=== PATIENT | female | born 1985 | race African-American/Black ===

== ENCOUNTER 2022-02-25 04:48 | Emergency (ER) | payer BC ==
[~2022-02-25] VITALS: Ht 167.6 cm; Wt 97.7 kg
[2022-02-25 06:05] LABS: Albumin 3.4 g/dL (3.4-5.0); Calcium 8.8 mg/dL (8.5-10.1)
[2022-02-25 06:09] LABS: BUN/Creatinine Ratio 18.8; Bilirubin, Total 0.5 mg/dL (0.2-1.0); Total Protein 6.8 g/dL (6.4-8.2)
[2022-02-25 06:31] LABS: Basophils # (auto) 0.1 10 ^3/uL (0-0.2); Basophils % (auto) 0.7 % (0.0-2.0); Eosinophils # (auto) 0.3 10 ^3/uL (0-0.8); Eosinophils % (auto) 3.6 % (0.0-7.0); Hemoglobin 14.2 g/dL (12.2-16.2); Lymphocytes # (auto) 3.2 10 ^3/uL (0.4-5.4); Lymphocytes % (auto) 34.5 % (10.0-50.0); Mean Corpuscular Hgb Conc. 33.1 g/dL (32.0-36.0); Mean Corpuscular Volume 93.5 fL (80.0-100.0); Monocytes # (auto) 0.6 10 ^3/uL (0-1.3); Monocytes % (auto) 6.1 % (0.0-12.0); Neutrophils % (auto) 55.1 % (37.0-80.0); Nucleated Red Blood Cells % 0.1 %; Red Blood Cells 4.59 10^6/uL (4.0-5.20); Red Cell Distribution Width 13.1 % (11.8-14.3); White Blood Cell 9.2 10^3/uL (4.4-10.8)
[2022-02-25 08:00] LABS: Urine Bacteria NONE SEEN /hpf (None Seen); Urine Blood Negative /uL (Negative); Urine Mucus FEW (None Seen); Urine Specific Gravity 1.024 (1.001-1.035); Urine WBC 2 /hpf (0 - 5)
[2022-02-25] MEDS ORDERED: TRAM-297 PO (08:26)
[2022-02-25] MEDS ORDERED: ONDA-144 PO (08:26)
[2022-02-25 08:36] VITALS: BP 140/91
== END 2022-02-25 08:57 | disposition home or self-care (01) ==
LOC: ER 04:48
DX: R10.30 Lower abdominal pain, unspecified (principal); J45.909 Unspecified asthma, uncomplicated; Z98.890 Other specified postprocedural states; Z20.822 Contact with and (suspected) exposure to COVID-19
CPT/HCPCS: 36415; 74176; 80053; 81001; 81025; 82150; 83690; 84484; 85025; 85379; 87426; 87804; 93005

== ENCOUNTER → 2024-07-09 | Outpatient (CLI) | payer BC ==
[~2024-07-09] MED LIST: ONDA-144 PO; TRAM-297 PO
[2024-07-09 15:43] LABS: Basophils # (auto) 0.1 10 ^3/uL (0-0.2); Basophils % (auto) 0.6 % (0.0-2.0); Eosinophils # (auto) 0.3 10 ^3/uL (0-0.8); Eosinophils % (auto) 3.3 % (0.0-7.0); Hematocrit 39.7 % (36.0-46.0); Hemoglobin 13.7 g/dL (12.2-16.2); Lymphocytes # (auto) 2.3 10 ^3/uL (0.4-5.4); Lymphocytes % (auto) 21.8 % (10.0-50.0); Mean Corpuscular Hemoglobin 31.7 pg (28.0-32.0); Mean Corpuscular Hgb Conc. 34.6 g/dL (32.0-36.0); Mean Corpuscular Volume 91.9 fL (80.0-100.0); Monocytes # (auto) 0.5 10 ^3/uL (0-1.3); Monocytes % (auto) 4.7 % (0.0-12.0); Neutrophils # (auto) 7.2 10 ^3/uL (1.6-8.6); Neutrophils % (auto) 69.6 % (37.0-80.0); Nucleated Red Blood Cells % 0.1 %; Platelet Count (auto) 242 10^3/uL (140-450); Red Blood Cells 4.32 10^6/uL (4.0-5.20); Red Cell Distribution Width 14.8 % (11.8-14.3); White Blood Cell 10.4 10^3/uL (4.4-10.8)
[2024-07-10 20:07] LABS: Chlamydia Trachomatis, NAA Negative (Negative); Neisseria gonorrhoeae, NAA Negative (Negative)
== END | disposition home or self-care (01) ==
LOC: LAB 15:16
PROVIDERS: ATTEND Obstetrics & Gynecology
DX: Z34.80 Encounter for supervision of other normal pregnancy, unspecified trimester (principal); Z72.51 High risk heterosexual behavior; Z3A.00 Weeks of gestation of pregnancy not specified
CPT/HCPCS: 36415; 83036; 84144; 84702; 85025; 86703; 86762; 86780; 86850; 86900; 86901; 87086; 87340

== ENCOUNTER 2024-11-01 10:58 | Observation (INO) | payer BC ==
[2024-11-01] MEDS ORDERED: ASPI1TAB20 PO (12:18)
[2024-11-01] MEDS ORDERED: PREN-96 PO (12:18)
[2024-11-01] MEDS ORDERED: LABE200T33 PO (12:18)
--- NOTE | 2024-11-03 09:20 | DVHDS2 ---
Physician Discharge Progress N Final Diagnosis: GEST HTN,PTL 27WKS Operations or Procedures: Operations or Procedures NST REACTIVE REVIWED,SONO Condition on Discharge: Good Disposition: Home Discharge Instructions: Diet: Regular Activity: Light activity Activity comment: pelvic rest Medications: NA Follow Up Care: Specialist: 3D Discharge Statement: "Patient was advised to return to the ER or call 911 if any headaches, dizziness, shortness of breath, chest pain, abdominal pain, bleeding, fevers, or worsening of medical condition. Patient was counseled about treatment plan, medications, possible side effects, patientverbalized understanding. All questions were answered to the best of my ability. This discharge took greater then 30 minutes in planning, reviewing documentation, counseling the patient, and discussing with other team members." Visit Coding OBGYN Date of Service: Nov 02, 2024 Billing Provider: DARCIE RAMIREZ DO MOLD CLOSER HELPER Common Visit Codes: [id number] OBS CARE (HIGH) MOLD CLOSER HELPER Procedure Codes: 51695-85- NON-STRESS TEST DARCIE RAMIREZ DO Nov 03, 2024 09:20
== END 2024-11-01 12:31 | disposition home or self-care (01) ==
LOC: LDRP 10:58 → UNDOADMOB 10:58 → LDRP 11:07 → UNDODISOB 12:31
PROVIDERS: ADMIT Obstetrics & Gynecology; ATTEND Obstetrics & Gynecology
DX: O60.02 Preterm labor without delivery, second trimester (principal); O13.2 Gestational [pregnancy-induced] hypertension without significant proteinuria, second trimester; Z3A.27 27 weeks gestation of pregnancy; Z98.890 Other specified postprocedural states
CPT/HCPCS: 59025; 81002; 94760; G0378

== ENCOUNTER 2024-11-08 12:10 | Observation (INO) | payer BC ==
[~2024-11-08] VITALS: Ht 167.6 cm; Wt 110.2 kg
[~2024-11-08 12:10] MED LIST changes: +ASPI1TAB20 PO; +LABE200T33 PO; +PREN-96 PO
--- NOTE | 2024-11-08 13:53 | DVH ---
OB ULTRASOUND >14 WEEKS: HISTORY: PTL TECHNIQUE: Multiple real-time grayscale sonographic images of the pelvis with duplex Doppler color f low, spectral and M-mode analysis. TRANSDUCERS: Transabdominal COMPARISON: None Findings/ IMPRESSION: Breech presentation. Posterior placenta PELON deepest pocket measures 7.4 cm. Cervix is closed and measures 3.8 cm. heart rate 137 beats per minute
[2024-11-08 14:58] LABS: Hematocrit 38.1 % (36.0-46.0); Hemoglobin 13.0 g/dL (12.2-16.2); Mean Corpuscular Hemoglobin 32.3 pg (28.0-32.0); Mean Corpuscular Volume 94.6 fL (80.0-100.0); Nucleated Red Blood Cells % 0.0 %
[2024-11-08 15:12] LABS: Alanine Aminotransferase 23 U/L (7-40); Albumin 3.7 g/dL (3.2-4.8); Alkaline Phosphatase 57 U/L (46-116); Anion Gap 9 (5-15); BUN/Creatinine Ratio 12.5 (10.0-20.0); Bilirubin, Total 0.4 mg/dL (0.2-1.0); Blood Urea Nitrogen 7 mg/dL (9-23); Calcium 9.0 mg/dL (8.7-10.4); Carbon Dioxide 23 mmol/L (20-31); Chloride 106 mmol/L (98-107); Glucose 79 mg/dL (74-106); INR 0.94 (0.9-1.15); Partial Thromboplastin Time 28.5 SEC (24.5-34.5); Potassium 3.8 mmol/L (3.5-5.1); Prothrombin Time 10.0 sec (9.3-11.8); Sodium 138 mmol/L (136-145); Total Protein 6.4 g/dL (5.7-8.2); Uric Acid 3.9 mg/dL (3.1-7.8)
[2024-11-08] MEDS: LABETALOL HCL 200 MG TAB PO ONE (15:12)
[2024-11-08 15:47] LABS: Protein, Urine 24.4 mg/dL (1-14)
[2024-11-08 16:02] LABS: Urine Protein, UAD TRACE (Negative)
--- NOTE | 2024-11-08 16:19 | DVHDS2 ---
Physician Discharge Progress N Final Diagnosis: IUP 28 wk, CHTN Commentary: Commentary NST appropriate for gest age PIH labs NORMAL BP's controlled on meds Condition on Discharge: Stable Disposition: Home Discharge Instructions: Diet: Regular Activity: No Restrictions, As Tolerated Follow Up/Referral: As scheduled w/ Dr Kinney Medications: CONTINUE ALL HOME MEDICATIONS DIRECTED BY DR. KINNEY Follow Up Care: Discharge Statement: "Patient was advised to return to the ER or call 911 if any headaches, dizziness, shortness of breath, chest pain, abdominal pain, bleeding, fevers, or worsening of medical condition. Patient was counseled about treatment plan, medications, possible side effects, patientverbalized understanding. All questions were answered to the best of my ability. This discharge took greater then 30 minutes in planning, reviewing documentation, counseling the patient, and discussing with other team members." Visit Coding OBGYN Date of Service: Nov 08, 2024 Billing Provider: CECIL LUCAS DO MATERIAL HANDLING SUPERVISOR Common Visit Codes: 86592-EZW/OBS SAME DATE (HIGH) MATERIAL HANDLING SUPERVISOR Procedure Codes: 47660-18- NON-STRESS TEST CECIL LUCAS DO Nov 08, 2024 16:19
== END 2024-11-08 16:30 | disposition home or self-care (01) ==
LOC: LDRP 12:10
PROVIDERS: ADMIT Obstetrics & Gynecology; ATTEND Obstetrics & Gynecology
DX: O13.3 Gestational [pregnancy-induced] hypertension without significant proteinuria, third trimester (principal); Z3A.28 28 weeks gestation of pregnancy; Z98.890 Other specified postprocedural states
CPT/HCPCS: 36415; 59025; 76815; 80053; 81001; 81002; 82570; 84156; 84550; 85025; 85610; 85730; 94760; G0378

== ENCOUNTER 2024-11-15 11:58 | Observation (INO) | payer BC ==
[~2024-11-15 11:58] MED LIST changes: -ONDA-144 PO; -TRAM-297 PO
--- NOTE | 2024-11-15 13:35 | DVHDS2 ---
Physician Discharge Progress N Final Diagnosis: gest htn,ptl 29wks Operations or Procedures: Operations or Procedures nst reactive reviwed,sono Condition on Discharge: Good Disposition: Home Discharge Instructions: Diet: Regular Activity: No Restrictions, As Tolerated Medications: na Follow Up Care: Specialist: 1w Discharge Statement: "Patient was advised to return to the ER or call 911 if any headaches, dizziness, shortness of breath, chest pain, abdominal pain, bleeding, fevers, or worsening of medical condition. Patient was counseled about treatment plan, medications, possible side effects, patientverbalized understanding. All questions were answered to the best of my ability. This discharge took greater then 30 minutes in planning, reviewing d ocumentation, counseling the patient, and discussing with other team members." Visit Coding OBGYN Date of Service: Nov 15, 2024 Billing Provider: DARCIE RAMIREZ DO AEGIS CONSOLE OPERATOR TRACK Common Visit Codes: 13570-[id number] OBS CARE (HIGH) AEGIS CONSOLE OPERATOR TRACK Procedure Codes: 18644-09- NON-STRESS TEST DARCIE RAMIREZ DO Nov 15, 2024 13:34
== END 2024-11-15 14:01 | disposition home or self-care (01) ==
LOC: UNDOADMOB 11:58 → LDRP 11:58
PROVIDERS: ADMIT Obstetrics & Gynecology; ATTEND Obstetrics & Gynecology
DX: O13.3 Gestational [pregnancy-induced] hypertension without significant proteinuria, third trimester (principal); O60.03 Preterm labor without delivery, third trimester; Z3A.29 29 weeks gestation of pregnancy; Z98.890 Other specified postprocedural states
CPT/HCPCS: 59025; 81002; 94760; G0378

== ENCOUNTER 2024-11-19 05:54 | Observation (INO) | payer BC ==
[~2024-11-19] VITALS: Ht 167.6 cm; Wt 111.6 kg
--- NOTE | 2024-11-20 13:53 | DVHDS2 ---
Physician Discharge Progress N Final Diagnosis: [facility] 29wks Operations or Procedures: Operations or Procedures nst reactive reviwed,raizao Condition on Discharge: Good Disposition: Home Discharge Instructions: Diet: Consistent carbohydrate Activity: Light activity Medications: na Follow Up Care: Specialist: 1w Discharge Statement: "Patient was advised to return to the ER or call 911 if any headaches, dizziness, shortness of breath, chest pain, abdominal pain, bleeding, fevers, or worsening of medical condition. Patient was counseled about treatment plan, medications, possible side effects, patientverbalized understanding. All questions were answered to the best of my ability. This discharge took greater then 30 minutes in planning, reviewing documenta tion, counseling the patient, and discussing with other team members." Visit Coding OBGYN Date of Service: Nov 20, 2024 Billing Provider: DARCIE RAMIREZ DO LIFT TRUCK OPERATOR Common Visit Codes: 89284-[id number] OBS CARE (HIGH) LIFT TRUCK OPERATOR Procedure Codes: 89453-72- NON-STRESS TEST DARCIE RAMIREZ DO Nov 20, 2024 13:53
== END 2024-11-20 10:43 | disposition home or self-care (01) ==
LOC: LDRP 11-20 09:15
PROVIDERS: ADMIT Obstetrics & Gynecology; ATTEND Obstetrics & Gynecology
DX: O13.3 Gestational [pregnancy-induced] hypertension without significant proteinuria, third trimester (principal); Z3A.29 29 weeks gestation of pregnancy; Z98.890 Other specified postprocedural states
CPT/HCPCS: 59025; 81002; 94760; G0378

== ENCOUNTER 2024-11-23 11:21 | Observation (INO) | payer BC ==
[2024-11-23] MEDS ORDERED: FER325T PO (12:08)
--- NOTE | 2024-11-24 09:34 | DVHDS2 ---
Physician Discharge Progress N Final Diagnosis: PI 30WKS Operations or Procedures: Operations or Procedures NST REACTIVE REVIWED,CLINTO Condition on Discharge: Good Disposition: Home Discharge Instructions: Diet: Regular Activity: Light activity Medications: NA Follow Up Care: Specialist: 5D Discharge Statement: "Patient was advised to return to the ER or call 911 if any headaches, dizziness, shortness of breath, chest pain, abdominal pain, bleeding, fevers, or worsening of medical condition. Patient was counseled about treatment plan, medications, possible side effects, patientverbalized understanding. All questions were answered to the best of my ability. This discharge took greater then 30 minutes in planning, reviewing documentation, counseling the patient, and discussing with other team members." Visit Coding OBGYN Date of Service: Nov 23, 2024 Billing Provider: DARCIE RAMIREZ DO PRE PRESS PROOFER Common Visit Codes: 47190-[id number] OBS CARE (HIGH) PRE PRESS PROOFER Procedure Codes: 42942-90- NON-STRESS TEST DARCIE RAMIREZ DO Nov 24, 2024 09:34
== END 2024-11-23 13:09 | disposition home or self-care (01) ==
LOC: LDRP 11:21
PROVIDERS: ADMIT Obstetrics & Gynecology; ATTEND Obstetrics & Gynecology
DX: O13.3 Gestational [pregnancy-induced] hypertension without significant proteinuria, third trimester (principal); Z3A.30 30 weeks gestation of pregnancy; Z98.890 Other specified postprocedural states
CPT/HCPCS: 59025; 81002; 94760; G0378

== ENCOUNTER 2024-11-27 07:45 | Observation (INO) | payer BC ==
[~2024-11-27] VITALS: Ht 167.6 cm; Wt 111.6 kg
[~2024-11-27 07:45] MED LIST changes: +FER325T PO
[2024-11-29] MEDS ORDERED: ACETAMINOPHEN 325 MG TAB PO ONE (20:00)
[2024-11-29] MEDS: ACETAMINOPHEN 500 MG TAB or CAP PO ONE (20:40)
[2024-11-29 20:41] LABS: Hematocrit 36.5 % (36.0-46.0); Hemoglobin 12.5 g/dL (12.2-16.2); Mean Corpuscular Hemoglobin 32.5 pg (28.0-32.0); Mean Corpuscular Volume 94.4 fL (80.0-100.0)
[2024-11-29 20:50] LABS: Alanine Aminotransferase 20 U/L (7-40); Albumin 3.8 g/dL (3.2-4.8); Alkaline Phosphatase 65 U/L (46-116); Anion Gap 10 (5-15); BUN/Creatinine Ratio 8.1 (10.0-20.0); Calcium 9.1 mg/dL (8.7-10.4); Carbon Dioxide 25 mmol/L (20-31); Chloride 106 mmol/L (98-107); Glucose 80 mg/dL (74-106); Potassium 3.8 mmol/L (3.5-5.1); Sodium 141 mmol/L (136-145); Total Protein 6.7 g/dL (5.7-8.2); Uric Acid 3.5 mg/dL (3.1-7.8)
[2024-11-29 20:51] LABS: Bilirubin, Total 0.4 mg/dL (0.2-1.0); INR 0.94 (0.9-1.15); Partial Thromboplastin Time 27.1 SEC (24.5-34.5); Prothrombin Time 10.0 sec (9.3-11.8)
[2024-11-29 20:54] LABS: Blood Urea Nitrogen 5 mg/dL (9-23)
--- NOTE | 2024-11-29 21:00 | DVHDS2 ---
Physician Discharge Progress N Final Diagnosis: IUP 31 wk, Chronic HTN Operations or Procedures: Operations or Procedures NST Commentary: Commentary PIH labs neg Condition on Discharge: Stable Disposition: Eloped Discharge Instructions: Diet: Regular Activity: No Restrictions, As Tolerated Follow Up/Referral: As scheduled Medications: No new meds Follow Up Care: Discharge Statement: "Patient was advised to return to the ER or call 911 if any headaches, dizziness, shortness of breath, chest pain, abdominal pain, bleeding, fevers, or worsening of medical condition. Patient was counseled about treatment plan, medications, possible side effects, patientverbalized understanding. All questions were answered to the best of my ability. This discharge took greater then 30 minutes in planning, reviewing documentation, counseling the patient, and discussing with other team members." Visit Coding OBGYN Date of Service: Nov 29, 2024 Billing Provider: CECIL LUCAS DO PRODUCER Common Visit Codes: 81856-CZP/OBS SAME DATE (HIGH) PRODUCER Procedure Codes: 78738-69- NON-STRESS TEST CECIL LUCAS DO Nov 29, 2024 21:00
[2024-11-29 21:22] LABS: Urine Protein, UAD 1+ (Negative)
[2024-11-29 21:29] LABS: Protein, Urine 32.8 mg/dL (1-14)
[2024-11-29 21:44] LABS: Total Cells Counted 100.0 (100)
[2024-11-29 21:45] LABS: Giant Platelets Few; Nucleated Red Blood Cells % 0.0 %
== END 2024-11-29 22:07 | disposition home or self-care (01) ==
LOC: LDRP 11-29 15:12 → UNDOADMOB 11-29 15:12 → LDRP 11-29 19:11
PROVIDERS: ADMIT Obstetrics & Gynecology; ATTEND Obstetrics & Gynecology
DX: O13.3 Gestational [pregnancy-induced] hypertension without significant proteinuria, third trimester (principal); Z3A.31 31 weeks gestation of pregnancy; Z79.899 Other long term (current) drug therapy; Z98.890 Other specified postprocedural states
CPT/HCPCS: 36415; 59025; 80053; 81001; 81002; 82570; 84156; 84550; 85007; 85027; 85610; 85730; 94760; G0378

== ENCOUNTER 2024-12-06 11:01 | Observation (INO) | payer BC ==
--- NOTE | 2024-12-06 13:35 | DVHDS2 ---
Physician Discharge Progress N Final Diagnosis: chtn 32wks Operations or Procedures: Operations or Procedures nst reactive reviwed,sono Condition on Discharge: Good Disposition: Home Discharge Instructions: Diet: Regular Activity: No Restrictions, As Tolerated Medications: na Follow Up Care: Specialist: 4d Discharge Statement: "Patient was advised to return to the ER or call 911 if any headaches, dizziness, shortness of breath, chest pain, abdominal pain, bleeding, fevers, or worsening of medical condition. Patient was counseled about treatment plan, medications, possible side effects, patientverbalized understanding. All questions were answered to the best of my ability. This discharge took greater then 30 minutes in planning, reviewing documenta tion, counseling the patient, and discussing with other team members." Visit Coding OBGYN Date of Service: Dec 06, 2024 Billing Provider: DARCIE RAMIREZ DO ACCOUNTING SPECIALIST Common Visit Codes: 02566-[id number] INP/OBS CARE (HIGH) ACCOUNTING SPECIALIST Procedure Codes: 31667-08- NON-STRESS TEST DARCIE RAMIREZ DO Dec 06, 2024 13:35
--- NOTE | 2024-12-06 14:00 | DVH ---
BIOPHYSICAL PROFILE HISTORY: Gestational HTN TECHNIQUE: Multiple transabdominal real-time grayscale sonographic images through the gravid uterus of the fetus with duplex Doppler color flow and M-mode spectral analysis. 21 images received. FINDINGS: BIOPHYSICAL PROFILE: breathing score: 2 movement score: 2 tone score: 2 Quantitative PELON score: 2 (PELON: 27.2 Cm consistent with polyhydramnios.) Total score: 8/8 The cervix obscured by head Single live fetus in cephalic presentation. heart rate 131 beats per minute. Posterior Grade 1-2 placenta without previa or abruption Single live fetus at 32 weeks 0 days Biophysical profile score 8/8 corresponding to an SARAH of 01/31/2025 Estimated weight not calculated No additional measurements received. IMPRESSION: 1. Biophysical profile score: 8/8 2. FHR: 131 beats per minute 3. PELON: 27.2cm per tech worksheet. 24.8 cm as per ultrasound machine generated worksheet. Findings solo ggest polyhydramnios.
== END 2024-12-06 14:44 | disposition home or self-care (01) ==
LOC: LDRP 12:18
PROVIDERS: ADMIT Obstetrics & Gynecology; ATTEND Obstetrics & Gynecology
DX: O13.3 Gestational [pregnancy-induced] hypertension without significant proteinuria, third trimester (principal); Z3A.32 32 weeks gestation of pregnancy; Z98.890 Other specified postprocedural states
CPT/HCPCS: 76818; 81002; 94760; G0378; 59025; 76819

== ENCOUNTER 2024-12-10 14:13 | Observation (INO) | payer BC ==
--- NOTE | 2024-12-10 14:59 | DVH ---
BIOPHYSICAL PROFILE HISTORY: GHTN/Poly TECHNIQUE: Multiple transabdominal real-time grayscale sonographic images through the gravid uterus of the fetus with duplex Doppler color flow and M-mode spectral analysis FINDINGS: BIOPHYSICAL PROFILE: breathing score: 2 movement score: 2 tone score: 2 Quantitative PELON score: 2 (PELON: 26.8 Cm.) findings suggest polyhydramnios Total score: 8/8 The cervix obscured by head Single live fetus in cephalic presentation. heart rate 130 beats per minute. Posterior Grade 2 placenta without previa or abruption Single live fetus at 32 weeks 4 days Biophysical profile score 8/8 corresponding to an SARAH of 01/31/2025 IMPRESSION: 1. Biophysical profile score: 8/8 2. Findings suggest polyhydramnios with PELON 26.8 cm 3. [id number] bpm 4. position breech 5. Placenta posterior
--- NOTE | 2024-12-10 16:57 | DVHDS2 ---
Physician Discharge Progress N Final Diagnosis: testing for GHTN/polyhydramnios Operations or Procedures: Operations or Procedures 39yo IUP@32.4wks, takes labetalol 200mg PO BID VSS per RN NST reactive per RN FKC/PTL/preE precautions reviewed Dr. Kinney consulted, agrees with POC. Other Interventions Other Interventions [place] [address] Ph: [phone] DIAGNOSTIC IMAGING Diagnostic Imaging Report : [id number] Signed PATIENT: ISELA DÍAZ ACCT: [id number] UNIT: [id number] : 1985 LOC: [facility] ROOM / BED: TRIAGE1 / A AGE / SEX: 39 / F ADM STATUS: ADM IN SERVICE 17 ORDERING PHYSICIAN: RILEY DOUGLAS CNM PROCEDURE(s): BPP - BIOPHYSICAL PROFILE REASON: GHTN/Poly ORDER NUMBER(s): [id number], ACCESSION NUMBER(s): [id number] BIOPHYSICAL PROFILE HISTORY: GHTN/Poly TECHNIQUE: Multiple transabdominal real-time grayscale sonographic images through the gravid uterus of the fetus with duplex Doppler color flow and M-mode spectral analysis FINDINGS: BIOPHYSICAL PROFILE: breathing score: 2 movement score: 2 tone score: 2 Quantitative PELON score: 2 (PELON: 26.8 Cm.) findings suggest polyhydramnios Total score: 8/8 The cervix obscured by head Single live fetus in cephalic presentation. heart rate 130 beats per minute. Posterior Grade 2 placenta without previa or abruption Single live fetus at 32 weeks 4 days Biophysical profile score 8/8 corresponding to an SARAH of 01/31/2025 IMPRESSION: 1. Biophysical profile score: 8/8 2. Findings suggest polyhydramnios with PELON 26.8 cm 3. [id number] bpm 4. position breech 5. Placenta posterior ATED BY: BIRDIE HOWARD Jr., DO DICTATED DATE/TIME: 12/10/241455 SIGNED BY: BIRDIE HOWARD Jr., SIGNED DATE/TIME: 12/10/241455 CC: Condition on Discharge: Stable Disposition: Home Discharge Instructions: Diet: Cardiac 2g Na,low cholest Activity: No Restrictions, As Tolerated Medications: see med list Follow Up Care: Specialist: f/u in 3 days Discharge Statement: "Patient was advised to return to the ER or call 911 if any headaches, dizziness, shortness of breath, chest pain, abdominal pain, bleeding, fevers, or worsening of medical condition. Patient was counseled about treatment plan, medications, possible side effects, patientverbalized understanding. All questions were answered to the best of my ability. This discharge took greater then 30 minutes in planning, reviewing documentation, counseling the patient, and discussing with other team members." Visit Coding OBGYN Date of Service: Dec 10, 2024 Billing Provider: RILEY DOUGLAS CNM H[employer] CREW MEMBER Common Visit Codes: [id number]-[id number] OBS CARE (HIGH) H[employer] CREW MEMBER Procedure Codes: 87475-75- NON-STRESS TEST RILEY DOUGLAS CNM Dec 10, 2024 16:57
== END 2024-12-10 15:45 | disposition home or self-care (01) ==
LOC: LDRP 14:13
PROVIDERS: ADMIT Obstetrics & Gynecology; ATTEND Obstetrics & Gynecology
DX: O13.3 Gestational [pregnancy-induced] hypertension without significant proteinuria, third trimester (principal); O09.523 Supervision of elderly multigravida, third trimester; Z3A.32 32 weeks gestation of pregnancy; Z98.890 Other specified postprocedural states
CPT/HCPCS: 76818; 81002; 94760; G0378; 59025; 76819